=== PATIENT | female | born 1960 | race African-American/Black ===

== ENCOUNTER → 2018-10-29 | Day surgery (SDC) | payer OTHER ==
[~2018-10-29] MED LIST: ALIGN4 MG PO; ALLERGY MED PO; CETIRIZINE HCL10 MG PO; FENTANYL CITRATE/PF 100MCG/2 ML INJ ONE; FLUTICASONE PRO16 GM IH; MIDAZOLAM HCL 2 MG/2 ML VIAL ONE; OMEPRAZOLE40 MG PO; PROPOFOL IV EMULSION 10 MG/ML 50 ML VIAL ONE; REFLUX MED PO
--- OUTSIDE RECORDS SUMMARY | 2018-10-29 07:19 | XMS REPORT ---
Author Author [facility] Address Unknown Phone Unavailable Care Team Providers Care Access Database Developer Name Role Phone UNKNOWN, REFFERING PP Unavailable WANG GOODMAN M.D. Unavailable Unavailable Payers Payer Name Policy Type Policy Number Effective Date Expiration Date Problems This patient has no known problems. Allergies, Adverse Reactions, Alerts Allergy Name Allergy Type Status Severity Reaction(s) Onset Date Inactive Date Treating Clinician Comments No Known Allergies DA Active U 2018-10-04 00:00:00 No Known Contrast Allergies DA Active U 2006-04-05 00:00:00 No Known Drug Allergies DA Active U 2006-04-05 00:00:00 No Known Food Allergies DA Active U 2006-04-05 00:00:00 No Known Other Allergies DA Active U 2006-04-05 00:00:00 Medications This patient has no known medications. Results Test Description Test Time Test Comments Text Results Atomic Results Result Comments TROPONIN I RAPID 2018-10-05 14:05:00 TROPONIN I RAPID (test code=TROPIRAP) 0.01 ng/mL <0.08 Please Note New Reference Range 0.00-0.079 ng/mL - Negative>or=0.08 ng/mL - Positive The use of serial sampling and testing protocol is arecommended practice.An elevated troponin level alone is often not sufficient fordiagnosis of myocardial infarction. Troponin results obtained by different assays may vary.Evaluation of the extent of myocardial damage based onincrease of troponin would be valid only if similarmethodology is used. POC LACTIC [id number] 14:05:00* Test Item Value Reference Range Comments POC LACTIC ACID (test code=POCLAC) 1.54 MMOL/L 0.4-2.2 URINALYSIS [id number] 20:09:00* Test Item Value Reference Range Comments UA COLOR (test code=COLU) YELLOW YELLOW UA APPEARANCE (test code=APPU) CLEAR CLEAR UA GLUCOSE DIPSTICK (test code=DGLUU) NEGATIVE mg/dL NEGATIVE UA BILIRUBIN DIPSTICK (test code=BILU) NEGATIVE mg/dL NEGATIVE UA KETONE DIPSTICK (test code=KETU) 5 (Trace) mg/dL NEGATIVE UA SPECIFIC GRAVITY (test code=SGU) 1.016 1.001-1.035 UA BLOOD DIPSTICK (test code=OSEI) Negative NEGATIVE UA PH DIPSTICK (test code=JADEN) 6.0 5.0-8.0 UA PROTEIN DIPSTICK (test code=PROU) Negative mg/dL NEGATIVE UA UROBILINIOGEN DIPSTICK (test code=URO) 1 mg/dL (1+) mg/dL 0.0-0.2 UA NITRITE DIPSTICK (test code=REINA) NEGATIVE NEGATIVE UA LEUKOCYTE ESTERASE W REFLEX (test code=LEUUR) NEGATIVE NEGATIVE UA WBC (test code=WBCU) 0-5 #/HPF 0-5 UA RBC (test code=RBCU) 0-2 #/HPF 0-5 UA EPITHELIAL CELLS (test code=EPIU) FEW per HPF FEW UA BACTERIA (test code=BACU) FEW #/HPF NONE UA MUCUS (test code=MUCU) FEW #/LPF FEW Urine Source? Clean CatchPROCALCITONIN (PCT)2018-10-04 18:40:00* Test Item Value Reference Range Comments PROCALCITONIN (PCT) (test code=PROCAL) 0.06 ng/ml Concentration Interpretation (ng/mL) <0.51 Sepsis is not likely. Local bacterial infection is possible. (LOW RISK for progression to Sepsis) 0.51 - 2.00 Sepsis is possible, but other conditions are known to elevate PCT as well. (MODERATE RISK for progression to Sepsis) > 2.00 Sepsis is likely, unless other causes are known. (HIGH RISK for progression to Severe Sepsis or Septic Shock) 10.00 High likelihood of Severe Sepsis or Septic or higher Shock. *Increased PCT levels may not always be related to systemic bacterial infection.*Low PCT levels do not automatically exclude the presence of bacterial infection.*All results should be interpreted taking into account the patients history. BASIC METABOLIC [id number] 18:36:00* Test Item Value Reference Range Comments SODIUM (test code=NA) 133 mmol/L 136-145 POTASSIUM (test code=K) 3.9 mmol/L 3.5-5.1 CHLORIDE (test code=CL) 100.0 mmol/L 98-107 CARBON DIOXIDE (test code=CO2) 26.0 mmol/L 21-32 ANION GAP (test code=GAP) 10.9 10-20 GLUCOSE (test code=GLU) 106 mg/dL 74-106 BLOOD UREA NITROGEN (test code=BUN) 12 mg/dL 7-18 GLOMERULAR FILTRATION RATE (test code=GFR) > 60 mL/min >=60 Estimated GFR by using Modified MDRD formula.Chronic kidney disease is defined as either kidney damageor GFR <60 mL/min/1.73 m2 for >3 months. CREATININE (test code=CREAT) 1.10 mg/dL 0.55-1.02 Note change in reference range due to change in reagent. BUN/CREATININE RATIO (test code=BUN/CREA) 11.2 10-20 CALCIUM (test code=CA) 8.2 mg/dL 8.5-10.1 [id number] 18:36:00* Test Item Value Reference Range Comments TROPONIN-I (test code=TROPI) <0.015 ng/mL 0-0.045 HEPATIC FUNCTION [id number] 18:36:00* Test Item Value Reference Range Comments TOTAL PROTEIN (test code=PROT) 7.0 gram/dL 6.4-8.2 ALBUMIN (test code=ALB) 3.4 g/dL 3.4-5.0 GLOBULIN (test code=GLOB) 3.6 gram/dL 2.7-4.2 ALBUMIN/GLOBULIN RATIO (test code=A/G) 0.9 0.75-1.50 BILIRUBIN TOTAL (test code=BILT) 0.40 mg/dL 0.0-1.0 BILIRUBIN DIRECT (test code=BILD) 0.08 mg/dL 0.0-0.20 SGOT/AST (test code=AST) 74 IUnit/L 15-37 SGPT/ALT (test code=ALT) 44 IUnit/L 12-78 ALKALINE PHOSPHATASE TOTAL (test code=ALKP) 62 IUnit/L 45-117 Note change in reference range due to change in reagent. LACTIC [id number] 18:36:00* Test Item Value Reference Range Comments LACTIC ACID (test code=LACT) 1.7 mmol/L 0.4-1.9 BASIC METABOLIC [id number] 18:26:00* Test Item Value Reference Range Comments SODIUM (test code=NA) 133 mmol/L 136-145 POTASSIUM (test code=K) 3.9 mmol/L 3.5-5.1 CHLORIDE (test code=CL) 100.0 mmol/L 98-107 CARBON DIOXIDE (test code=CO2) mmol/L 21-32 ANION GAP (test code=GAP) 10-20 GLUCOSE (test code=GLU) mg/dL 74-106 BLOOD UREA NITROGEN (test code=BUN) mg/dL 7-18 GLOMERULAR FILTRATION RATE (test code=GFR) mL/min >=60 CREATININE (test code=CREAT) mg/dL 0.55-1.02 BUN/CREATININE RATIO (test code=BUN/CREA) 10-20 CALCIUM (test code=CA) mg/dL 8.5-10.1 [id number] 18:26:00* Test Item Value Reference Range Comments TROPONIN-I (test code=TROPI) ng/mL 0-0.045 CBC W/O [id number] 18:19:00* Test Item Value Reference Range Comments WHITE BLOOD CELL (test code=WBC) 5.1 K/mm3 4.5-12.5 RED BLOOD CELL (test code=RBC) 4.89 mill/mm3 3.7-5.2 HEMOGLOBIN (test code=HGB) 12.6 gram/dL 11.5-15.5 HEMATOCRIT (test code=HCT) 39.4 % 36.0-46.0 MEAN CELL VOLUME (test code=MCV) 80.6 fL 80-98 MEAN CELL HGB (test code=MCH) 25.8 picogram 27.0-33.0 MEAN CELL HGB CONCETRATION (test code=MCHC) 32.0 gram/dL 33.0-36.0 RED CELL DISTRIBUTION WIDTH (test code=RDW) 15.9 % 11.6-16.2 PLATELET COUNT (test code=PLT) 260 K/mm3 150-450 MEAN PLATELET VOLUME (test code=MPV) 9.8 fL 6.7-11.0 - XR CHEST 1 [id number] 18:03:00 FAX: Inocencio Rosado DO [place]: St: PRE FAX: Raj Booth [phone] Name: GILLIANELLIOTTKAIT KARLA [facility] : 1960 Age/S: 57/F [address] [facility] Unit #: [id number] Loc: [place] [address] Phys: Inocencio Rosado DO Acct: [id number] Dis Date: Status: PRE ER PHONE #: [phone] Exam Date: 10/04/2018 1800 FAX #: [phone] Reason: CHEST PAIN EXAMS: CPT CODE: [id number] XR CHEST 1 V [id number] EXAM: Chest X-ray, 1 view; CLINICAL HISTORY: Chest pain; FINDINGS: The lungs are clear, no infiltrates, no edema; no effusions; no pneumothorax; normal cardiomediastinal silhouette. IMPRESSION: Normal chest x-ray. at 1803 Reported and signed by: Diego Ramírez M.D. CC: Inocencio Rosado DO; Raj Perry Technologist: Bhargav FRANCISCO(R) Trnscrd Date/Time/By: 10/04/2018 (1803) : By: [email or web address] Orig Print D/T: S: 10/04/2018 (6706) PAGE 1 Signed Report Blood Type and RH 2017-11-15 12:19:00* Test Item Value Reference Range Comments ABO type (test code=ABO) AB Rh Type (test code=RH) Positive Antibody Screen - [id number] 12:19:00* Test Item Value Reference Range Comments Antibody Screen (test code=ABSCR) Negative CBC with [id number] 10:56:00* Test Item Value Reference Range Comments WBC (test code=WBC) 8.4 K/cumm 4.4-10.5 RBC (test code=RBC) 4.95 M/cumm 3.75-5.20 Hemoglobin (test code=HGB) 12.9 gm/dL 12.2-14.8 Hematocrit (test code=HCT) 41.2 % 36.5-44.4 MCV (test code=MCV) 83.2 fL 80-100 MCH (test code=MCH) 26.1 pg 27.0-32.5 MCHC (test code=MCHC) 31.4 g/dL 32.0-37.5 RDW (test code=RDW) 14.8 % 11.5-14.5 Platelet Count (test code=PLTCT) 369 K/cumm 140-440 MPV (test code=MPV) 7.1 fL Diff Method (test code=DIFFM) Auto Neutrophil (test code=NEUT) 42.6 % 36-70 Lymphocyte (test code=LYMPH) 48.8 % 12-44 Monocyte (test code=MONO) 4.0 % 0-11 Eosinophil (test code=EOS) 3.4 % 0-7 Basophil (test code=BASO) 1.1 % 0-2 Neutro Abs (test code=ANEUT) 3.6 K/cumm 1.6-7.4 Lymph Abs (test code=ALYMPH) 4.1 K/cumm 0.5-4.6 [place] Abs (test code=AMONO) 0.3 K/cumm 0.0-1.2 Eos Abs (test code=AEOS) 0.29 K/cumm 0.00-0.74 Baso Abs (test code=ABASO) 0.1 K/cumm 0.00-0.21
[2018-10-29 12:40] VITALS: BP 123/81
== END | disposition home or self-care (01) ==
LOC: OR 07:17
PROVIDERS: ATTEND Internal Medicine Gastroenterology
DX: Z12.11 Encounter for screening for malignant neoplasm of colon (principal); K29.70 Gastritis, unspecified, without bleeding; K44.9 Diaphragmatic hernia without obstruction or gangrene; K31.7 Polyp of stomach and duodenum
CPT/HCPCS: 43239; G0121; 45378; 93005; J2250

== ENCOUNTER → 2020-04-08 | Outpatient (CLI) | payer OTHER ==
[~2020-04-08] MED LIST changes: -FENTANYL CITRATE/PF 100MCG/2 ML INJ ONE; -MIDAZOLAM HCL 2 MG/2 ML VIAL ONE; -PROPOFOL IV EMULSION 10 MG/ML 50 ML VIAL ONE
--- NOTE | 2020-04-08 10:04 | Diagnostic Imaging Report ---
EXAM: US ABDOMEN COMPLETE DATE: 04/08/2020 8:35 AM INDICATION: Dyspepsia COMPARISON: None FINDINGS: The visualized pancreas is unremarkable. The liver is normal in size measuring 15.7 cm in length. The hepatic parenchyma is mildly increased in echogenicity suggestive of fatty infiltration. No focal hepatic abnormality is identified. The main portal vein is patent with antegrade flow and diameter of 0.7 cm, within normal limits. The gallbladder is unremarkable. There is no evidence for cholelithiasis, gallbladder wall thickening, or pericholecystic fluid. There is no intra or extrahepatic biliary ductal dilatation. The common bile duct measures 3 mm. Sonographic Ding's sign is negative. The spleen is normal in size measuring 9.2 cm in length and demonstrates an unremarkable sonographic appearance. The kidneys are normal in size measuring 10.8 cm in length on the right and 11.0 cm in length on the left. Cortical thickness/echogenicity is within normal limits. There is no evidence for solid renal mass, hydronephrosis, or shadowing calculi. The visualized portions the IVC and aorta are within normal limits. There is no ascites present. IMPRESSION: Sonographic findings suggestive of mild hepatic steatosis. Otherwise, unremarkable abdominal ultrasound examination. Signed by: Dr. Alberto Chaves MD on 04/08/2020 10:00 AM
--- NOTE | 2020-04-08 10:08 | Diagnostic Imaging Report ---
EXAM: US PELVIS COMPLETE NON OB DATE: 04/08/2020 8:43 AM INDICATION: Dyspepsia COMPARISON: None FINDINGS: Transabdominal images were obtained of the pelvis. The uterus is surgically absent. The ovaries could not be visualized transabdominally which may be secondary to their small size and prominent overlying bowel gas. No abnormal adnexal masses are appreciated. No free fluid is visualized within the pelvis. IMPRESSION: Status post hysterectomy. Nonvisualization of the ovaries as detailed above. Signed by: Dr. Alberto Chaves MD on 04/08/2020 10:04 AM
== END ==
LOC: US 08:17
PROVIDERS: ATTEND Internal Medicine Gastroenterology
DX: K30 Functional dyspepsia (principal)
CPT/HCPCS: 76700; 76856